=== PATIENT | male | born 1990 | race Caucasian/White ===

== ENCOUNTER 2023-11-03 11:54 | Emergency (ER) | payer BC, SELFPAY ==
[2023-11-03] VITALS (11 sets, daily range): BP systolic 126–154; BP diastolic 82–90; PULSE 60–94; RESP 13–19; O2SAT 97–100
--- NOTE | 2023-11-03 12:00 | DI.CT_ITS ---
Exam(s) CT HEAD WO EXAM: CT HEAD WO CLINICAL HISTORY: right sided head pain, numbness. TECHNIQUE: Imaging Protocol: Axial computed tomography images with coronal and sagittal reformatted images were created and reviewed COMPARISON: No exams were available for comparison FINDINGS: Ventricles and Extra axial spaces: Normal in size and morphology for the patient's age. Hemorrhage: None. Cerebral parenchyma: No evidence of acute infarct or mass. Midline shift: None. Brainstem/Cerebellum: Normal. Calvarium: Normal. Visualized Paranasal sinuses:Clear. Mastoids: Clear. Soft Tissues: Unremarkable. ORBITS: Unremarkable. PITUITARY: Not enlarged. IMPRESSION: No acute intracranial process. RADIATION DOSE DELIVERED: Total DLP DATA REPOSITORY: All CT scans at this facility are submitted to the National Radiology Data Registry (NRDR) Dose Index Registry (DIR) with the [employer] ([employer]). RADIATION OPTIMIZATION: All CT scans at this facility use at least one of these dose optimization te chniques: automated exposure control; mA and/or kV adjustment per patient size (includes targeted exa ms where dose is matched to clinical indication); or iterative reconstruction.
--- NOTE | 2023-11-03 12:00 | RT.EKG_ITS ---
APPROVED REPORT Exam: Resting ECG Reason for Exam: shortness of breath Patient Location: E HR:62 bpm ECG Measurements Heart Rate 62 AXIS SD 149 P 28 QRSd 87 QRS 63 QT 382 T 31 QTc 387 Conclusion Sinus rhythm...normal P axis, V-rate 60- 99
--- NOTE | 2023-11-03 12:15 | ED.GENADUL_ITS ---
Discharge Plan Disposition Patient Disposition: Home Condition: Stable Discharge Details Clinical Impression: Palpitations, Numbness, Headache Primary Care Provider: Latisha Dyer ED Provider: Brain Milan Home Meds and New Rx's Prescriptions: No Action No Known Home Meds Discharge Instructions Additional Instructions: Blood work and CAT scan did not show any concerning findings Will be your primary care provider within 1 week and discuss if you should have further testing done such as cardiac event monitoring or an MRI If you feel more ill or have new symptoms such as persistent vomiting or high fevers return to the emergency department for reevaluation HPI General Mode of arrival: ambulatory . Date/Time Provider Initiated Documentation: 11/03/23 11:57 . Limitations to Documentation: no limitations . Information obtained by: patient . History of Present Illness 32 year old M presents to the emergency department with the chief complaint of head fullness, described as moderate, Patient started experiencing this week(s) (2) and it has been constant. No relieving factors improve symptom(s), No exacerbating factors reported . Patient notes denies chest pain, fever/chills and shortness of breath. Patient did receive the following treatments prior to arrival, none Related Data Home Medications Medication Instructions Recorded Confirmed Unknown [No Known Home Meds] 11/03/23 11/03/23 Allergies Allergy/AdvReac Type Severity Reaction Status Date / Time No Known Allergies Allergy Unverified 11/03/23 12:03 General Stated Complaint: GenMedical ARMIDA: 3 Review of Systems All systems reviewed & are unremarkable except as noted in HPI and below Constitutional Constitutional: Denies chills, Denies fever(s) and Denies weakness Eyes Eyes: Denies loss of vision Cardiovascular Cardiovascular: Denies chest pain Respiratory Respiratory: Denies cough Gastrointestinal Gastrointestinal: Denies abdominal pain, Denies nausea and Denies vomiting Musculoskeletal Musculoskeletal: Denies joint swelling Neurologic Neurologic: Denies loss of vision and Denies weakness Psychiatric Psychiatric: Denies depression Exam Const General: no acute distress Orientation: alert HENMT Head: normal to inspection Ears: external ears normal General nose exam: external nose normal Mouth: moist mucous membranes Eyes General: appearance normal, both eyes and all related structures Neck Neck: normal visual inspection Resp Effort & Inspection: normal respiratory effort and able to speak in complete sentences Auscultation: clear to auscultation bilaterally Cardio Jugular venous pressure: no JVD Rate: regular rate Heart Sounds: no murmurs GI Palpation: soft and nontender Skin General skin exam: no rashes or lesions noted Neuro General: patient alert, patient oriented x3, gait normal, moves all extremities, CN's II-XI intact bilaterally and not confused Extrem General: normal to inspection Psych Mental Status: mental status grossly normal Course Vital Signs Vital signs: Vital Signs Pulse 85 11/03/23 11:59 Respiratory Rate 18 11/03/23 11:59 Blood Pressure 154/90 H 11/03/23 11:59 Pulse Oximetry 100 11/03/23 11:59 Pulse 85 11/03/23 11:59 Respiratory Rate 18 11/03/23 11:59 Respiratory Effort Normal, Non-Labored 11/03/23 12:03 Blood Pressure 154/90 H 11/03/23 11:59 Blood Pressure Position Sitting 11/03/23 11:59 Pulse Oximetry 100 11/03/23 11:59 Oxygen Delivery Method Room Air 11/03/23 11:59 Oxygen Flow Rate 0 11/03/23 11:59 Medical Decision Making 32-year-old male with no significant past medical history though he did recently have C. difficile and had an endoscopy showing an ulcer, comes in with 2 weeks of right-sided head fullness sensation, along with intermittent right-sided arm and leg numbness. He also notes he will intermittently get palpitations rece ntly his heart is racing. He denies any severe chest pain, difficulty breathing, fevers, chills, vision changes, slurred speech. He currently feels well, has a normal gait, NIH of 0 with no focal deficits. Unclear etiology for his head fullness with subjective numbness intermittently. Given his NIH of 0 doubt stroke. Will obtain CT to exclude mass or other etiologies. He has no severe headaches to suggest hemorrhage. No fevers and no meningismus so doubt [employer] infection. He is PERC negative so doubt PE, has no tearing back pain to suggest dissection, will check a CBC, CMP and troponin. Could also be due to related to stress versus anxiety but also MS which he would need further outpatient workup for. Patient's labs and imaging unremarkable he was given a dose of Toradol and Compazine for his headache with good results. He is stable for discharge advised to follow-up with his PCP to discuss further testing for possible MS with MRI and there is palpitations possibly having cardiac event monitoring. Return precautions given Differential Diagnosis Differential Diagnosis: Anxiety, MS, mass, sinusitis Lab Data Lab results reviewed: Yes I reviewed the patient's lab results. ECG Data Attestation: I personally reviewed and interpreted this ECG (s) as follows: Prior ECG tracings: not available for review Interpretation: sinus rate of 62 no stemi Quality:SDOH Health Related Social Needs: No Data to Display PFSH All Active Problems (Updated 11/03/23 @ 13:34 by Brain Milan MD) Headache (Acute) Numbness (Acute) Palpitations (Acute) Social History Smoking/Tobacco Use Status: Never Smoking risk assessment performed?: Yes Alcohol Intake: former Drug use: Never Substance use type: does not use
[2023-11-03 12:34] LABS: Abs Immature Grans 0.03 10^3/uL (0.0-0.06); Absolute Basophil Count 0.04 10^3/uL (0.0-0.2); Absolute Eosinophil Count 0.16 10^3/uL (0.0-0.7); Absolute Lymphocyte Count 1.59 10^3/uL (1.2-3.4); Absolute Monocyte Count 0.46 10^3/uL (0.1-0.8); Absolute Neutrophil Count 6.37 10^3/uL (1.2-6.7); Basophils % 0.5 %; Eosinophils % 1.8 %; HCT 47.5 % (40.0-50.0); HGB 16.2 g/dL (13.5-17.5); Immature Grans % 0.3 %; Lymphocytes % 18.4 %; MCH 28.7 pg (27.0-33.0); MCHC 34.1 % (32.0-36.0); MCV 84 fL (80-95); MPV 9.7 fL (8.0-11.0); Monocytes % 5.3 %; Neutrophils % 73.7 %; Platelet Count 317 10^3/uL (130-400); RBC 5.65 10^6/uL (4.36-5.78); RDW 12.8 % (11.8-14.1); RDW-SD 39.1 fL; WBC 8.65 10^3/uL (4.4-10.8)
[2023-11-03 12:51] LABS: ALT 33 U/L (16-63); AST 18 U/L (15-37); Albumin 4.7 g/dL (3.4-5.0); Alkaline Phosphatase 68 U/L (46-116); BUN 14 mg/dL (7-18); Bilirubin, Total 0.5 mg/dL (0.2-1.0); Calcium 9.4 mg/dL (8.5-10.1); Chloride 104 mmol/L (98-107); Estimated GFR 101.92 (mL/min/1.73m2); Glucose 104 mg/dL (74-106); Sodium 142 mmol/L (136-145); Total Protein 7.9 g/dL (6.4-8.2); Troponin I < 50 ng/L (< or =60)
[2023-11-03] MEDS: Ketorolac 15 MG/ML VIAL IVP (13:48)
[2023-11-03] MEDS: Prochlorperazine 10 MG/2 ML VIAL IVP (13:48)
== END 2023-11-03 14:06 | disposition home or self-care (01) ==
LOC: ER 13:51
PROVIDERS: Emergency Provider Emergency Medicine
DX: R20.0 Anesthesia of skin (principal); R00.2 Palpitations; R51.9 Headache, unspecified
CPT/HCPCS: 36415; 80053; 93005; 96374; 96375; 99285; 70450; 84484; 85025; 93010; 99284; J0780; J1885